=== PATIENT | female | born 1960 | race Caucasian/White ===

== ENCOUNTER 2017-11-15 14:30 | Outpatient (CLI) | payer BC ==
--- NOTE | 2017-11-15 15:54 | MMO ---
BILATERAL SCREENING MAMMOGRAMS: Date: 11/15/17 Comparison made to prior exams from 2017, 2016, and 2015. This patient's mammogram was interpreted with the assistance of computer-aided detection. FINDINGS: Heterogeneously dense glandular pattern again noted. Lymph node in the outer left breast is stable. S cattered benign-appearing calcifications. No distortion or mass. No significant interval change. Aroldo mmend one year follow-up. IMPRESSION: BIRADS 2: Benign Finding(s) POS: MADDIE
== END 2017-11-15 14:31 | disposition home or self-care (01) ==
LOC: SCSMAMMO 14:30
PROVIDERS: ATTEND Obstetrics & Gynecology
DX: Z12.31 Encounter for screening mammogram for malignant neoplasm of breast (principal)
CPT/HCPCS: 77067

== ENCOUNTER 2021-03-31 11:45 | Outpatient (CLI) | payer BC, OTHER | END 2021-03-31 11:46 | disposition home or self-care (01) | LOC: PET 11:45 | PROVIDERS: ATTEND Internal Medicine Hematology & Oncology | DX: C25.7 Malignant neoplasm of other parts of pancreas (principal); C78.7 Secondary malignant neoplasm of liver and intrahepatic bile duct; C79.51 Secondary malignant neoplasm of bone; R91.8 Other nonspecific abnormal finding of lung field; E22.9 Hyperfunction of pituitary gland, unspecified | CPT/HCPCS: 78815; A9552 ==

== ENCOUNTER 2021-04-24 10:20 | Outpatient (CLI) | payer BC, OTHER ==
[2021-04-24 23:47] LABS: SARS-CoV-2 PCR by NAA Not Detected (NotDetected)
== END 2021-04-24 10:21 | disposition home or self-care (01) ==
LOC: LABBT 10:20
PROVIDERS: ATTEND Surgery
DX: C25.9 Malignant neoplasm of pancreas, unspecified (principal); Z20.822 Contact with and (suspected) exposure to COVID-19
CPT/HCPCS: 77336; 77412; U0003; U0005

== ENCOUNTER 2021-08-24 12:06 | Day surgery (SDC) | payer BC, OTHER ==
[2021-08-24] MEDS ORDERED: Fentanyl 100 MCG/2 ML VIAL ONE (14:11)
[2021-08-24] MEDS ORDERED: Midazolam HCl 2 mg/2 ml Vial ONE ×2 (14:11→14:56)
[2021-08-24 14:38] LABS: Anion Gap 14 mmol/L (10-20); BUN (Urea Nitrogen) 10 mg/dL (9.8-20.1); Calc. Creatinine Clearance 0 mL/min (70-130); Calcium 8.9 mg/dL (7.8-10.44); Carbon Dioxide 31 mmol/L (22-29); Chloride 98 mmol/L (98-107); Estimated GFR 100; Glucose 183 mg/dL (70-105); Sodium 139 mmol/L (136-145)
[2021-08-24] MEDS ORDERED: Bupivacaine PF 0.5% 30 ML VIAL ONE (14:47)
[2021-08-24] MEDS ORDERED: EPINEPHrine 1 MG/ML AMP ONE (14:47)
[2021-08-24] MEDS ORDERED: fentaNYL Citrate/PF 100 MCG/2 ML SYRINGE ONE (14:56)
[2021-08-24] MEDS ORDERED: Sodium Chloride 0.9% 100 ML ONE (14:58)
[2021-08-24] MEDS ORDERED: CEFAZOLIN 2 GM VIAL ONE (14:58)
[2021-08-24] MEDS ORDERED: PROPOFOL 200 MG/20 ML VIAL ONE (15:14)
== END 2021-08-24 16:53 | disposition home or self-care (01) ==
LOC: SDC 12:06
PROVIDERS: ATTEND Thoracic Surgery (Cardiothoracic Vascular Surgery)
PROC: 0WH933Z Insertion of Infusion Device into Right Pleural Cavity, Percutaneous Approach (ICD-10-PCS; principal; 2021-08-24)
DX: C25.9 Malignant neoplasm of pancreas, unspecified (principal); J91.0 Malignant pleural effusion; Z79.01 Long term (current) use of anticoagulants; Z79.891 Long term (current) use of opiate analgesic; Z79.899 Other long term (current) drug therapy; Z88.0 Allergy status to penicillin; Z20.822 Contact with and (suspected) exposure to COVID-19
CPT/HCPCS: 71250; 80048; 87811; C1729; J0171; J0690; J1642; J2250; J2704; J3010; J3490; S0020